=== PATIENT | male | born 1955 | race Caucasian/White ===

== ENCOUNTER 2019-10-01 08:46 | Emergency (ER) | payer BC ==
[2019-09-21 11:40] VITALS: BP 134/75
[~2019-10-01] VITALS: Ht 180.3 cm; Wt 127.0 kg
[~2019-10-01 08:46] MED LIST: ATOR40TA59 PO; LISI1TAB19 PO
[2019-10-01] MEDS ORDERED: IV NORMAL SALINE 1000ML BAG 1,000 ML IV SCH (09:01)
[2019-10-01 09:21] LABS: BASO # 0.1 x10^3/uL (0.0-0.2); BASO % 1 % (0-3); EOS % 0 % (0-3); HEMATOCRIT 42.5 % (39.0-53.0); HEMOGLOBIN 12.9 g/dL (13.0-17.5); LYMPH # 5.4 x10^3/uL (1.0-4.8); LYMPH % 49 % (24-48); MEAN CORPUSCULAR HEMOGLOBIN 29 pg (25-35); MEAN CORPUSCULAR HGB CONC 30 g/dL (31-37); MEAN CORPUSCULAR VOLUME 94 fL (79-100); MONO # 0.9 x10^3/uL (0.0-1.1); MONO % 8 % (0-9); NEUT # 4.6 x10^3/uL (1.8-7.7); NEUT % 42 % (31-73); PLATELET COUNT 168 x10^3/uL (140-400); RED BLOOD COUNT 4.52 x10^6/uL (4.30-5.70); RED CELL DISTRIBUTION WIDTH 16.2 % (11.5-14.5); WHITE BLOOD COUNT 11.1 x10^3/uL (4.0-11.0)
[2019-10-01 09:22] LABS: CALCIUM 9.6 mg/dL (8.5-10.1); GFR 33.8; POTASSIUM 4.6 mmol/L (3.5-5.1)
[2019-10-01 09:23] LABS: PROTHROMBIN TIME PATIENT 15.9 SEC (11.7-14.0)
[2019-10-01 09:25] LABS: ALBUMIN 2.3 g/dL (3.4-5.0); ALBUMIN/GLOBULIN RATIO 0.6 (1.0-1.7); MAGNESIUM 2.9 mg/dL (1.8-2.4); TOTAL BILIRUBIN 0.4 mg/dL (0.2-1.0)
[2019-10-01] MEDS ORDERED: EPINEPHrine VIAL 5 MG in IV NORMAL SALINE 250ML 250 ML IV ONE (09:30)
[2019-10-01 09:34] LABS: HCO3 ABG 9 mmol/L (21-28); PCO2 ABG 73 mmHg (35-46); PO2 ABG 79 mmHg (65-108)
[2019-10-01 09:35] LABS: BASE EXCESS ABG -29 mmol/L (-3-3); SAT O2 ABG 77 % (92-99)
--- NOTE | 2019-10-01 09:37 | PHYS DOC ---
Adult General Chief Complaint Chief Complaint: CPR/FULL ARREST HPI HPI Patient is a 64-year-old male who presented to the emergency department in full cardiac arrest. About 8:15, the patient's reports that she was in the shower, and her to fall, and went out and found the patient, who had been awake, had collapsed. EMS was called. EMS arrived and began resuscitative efforts. The patient was reportedly in asystole, received numerous rounds of epinephrine, and half an amp of bicarbonate, via an IO in the left humeral head. The patient was intubated upon arrival to the emergency department with 7.5 orotracheal tube, while CPR and ACLS continued. The patient was given numerous rounds of epinephrine, and several ampules of sodium bicarbonate, and would occasionally have some idioventricular complexes, some more, or some less organized, but never did regain a pulse or organized rhythm. After resuscitative efforts continued, but the patient did not show any improvement, and he has no signs of life at 9:24, the patient was declared . The patient's , who is in the emergency department, was informed. The patient was reportedly recently in this hospital for respiratory difficulties related to influenza and pneumonia, per limited reviewed notes. Review of Systems Review of Systems Unable to obtain review of systems, patient is unable to speak. Current Medications Current Medications Current Medications Medications (Trade) Dose Ordered Sig/Jorge Luis Start Time Stop Time Status Last Admin Dose Admin Epinephrine HCl 5 mg/Sodium Chloride 255 ml @ 0 mls/hr 1X ONCE 10/01/19 09:30 10/01/19 09:31 DC Sodium Chloride 1,000 ml @ 1,000 mls/hr Q1H 10/01/19 09:01 10/01/19 10:00 Allergies Allergies Allergies Coded Allergies Type Severity Reaction Last Updated Verified No Known Drug Allergies 09/17/19 No Physical Exam Physical Exam PHYSICAL EXAM: CONSTITUTIONAL: Well developed, well nourished HEAD: normocephalic, atraumatic EENT: Pupils are midpoint and dilated. Conjunctivae normal color, sclerae non- icteric; moist mucous membranes. There is mottling to the skin of the face upon arrival. NECK: Supple, non-tender; no meningismus. LUNGS: There are no spontaneous breath sounds. There are good breath sounds bilaterally with assisted ventilation. HEART: There is a pulse with CPR but no spontaneous pulse. CHEST: No deformity; non-tender ABDOMEN: The abdomen is soft, mildly distended, EXTREM: No Gross deformity. SKIN: No rash; no diaphoresis. There is mottling of the skin. NEURO: Patient is unresponsive. Current Patient Data Lab Values Laboratory Tests Test 10/01/19 08:57 White Blood Count 11.1 x10^3/uL (4.0-11.0) H Red Blood Count 4.52 x10^6/uL (4.30-5.70) Hemoglobin 12.9 g/dL (13.0-17.5) L Hematocrit 42.5 % (39.0-53.0) Mean Corpuscular Volume 94 fL (79-100) Mean Corpuscular Hemoglobin 29 pg (25-35) Mean Corpuscular Hemoglobin Concent 30 g/dL (31-37) L Red Cell Distribution Width 16.2 % (11.5-14.5) H Platelet Count 168 x10^3/uL (140-400) Neutrophils (%) (Auto) 42 % (31-73) Lymphocytes (%) (Auto) 49 % (24-48) H Monocytes (%) (Auto) 8 % (0-9) Eosinophils (%) (Auto) 0 % (0-3) Basophils (%) (Auto) 1 % (0-3) Neutrophils # (Auto) 4.6 x10^3/uL (1.8-7.7) Lymphocytes # (Auto) 5.4 x10^3/uL (1.0-4.8) H Monocytes # (Auto) 0.9 x10^3/uL (0.0-1.1) Eosinophils # (Auto) 0.0 x10^3/uL (0.0-0.7) Basophils # (Auto) 0.1 x10^3/uL (0.0-0.2) Platelet Estimate Pending Prothrombin Time 15.9 SEC (11.7-14.0) H Prothrombin Time INR 1.3 (0.8-1.1) H Sodium Level 143 mmol/L (136-145) Potassium Level 4.6 mmol/L (3.5-5.1) Chloride Level 99 mmol/L (98-107) Carbon Dioxide Level 17 mmol/L (21-32) L Anion Gap 27 (6-14) H Blood Urea Nitrogen 25 mg/dL (8-26) Creatinine 2.0 mg/dL (0.7-1.3) H Estimated GFR (Cockcroft-Gault) 33.8 BUN/Creatinine Ratio 13 (6-20) Glucose Level 291 mg/dL (70-99) H Calcium Level 9.6 mg/dL (8.5-10.1) Magnesium Level 2.9 mg/dL (1.8-2.4) H Total Bilirubin 0.4 mg/dL (0.2-1.0) Aspartate Amino Transferase (AST) 79 U/L (15-37) H Alanine Aminotransferase (ALT) 104 U/L (16-63) H Alkaline Phosphatase 101 U/L (46-116) Troponin I Quantitative 0.020 ng/mL (0.000-0.055) Total Protein 6.0 g/dL (6.4-8.2) L Albumin 2.3 g/dL (3.4-5.0) L Albumin/Globulin Ratio 0.6 (1.0-1.7) L Laboratory Tests 10/01/19 08:57 Laboratory Tests 10/01/19 08:57 EKG EKG [] Radiology/Procedures Radiology/Procedures [] Course & Med Decision Making Course & Med Decision Making Pertinent Lab studies reviewed. (See chart for details) []9:35 AM: I have paged the patient's PCP, Dr. Kohli, to inform them of the patient's . Dragon Disclaimer Dragon Disclaimer This electronic medical record was generated, in whole or in part, using a voice recognition dictation system. Departure Departure Impression: Primary Impression: Cardiac arrest Disposition: 20 Referrals: TARUN KOHLI MD (PCP) MIAN GOODWIN MD Oct 01, 2019 09:37
[2019-10-01 09:52] LABS: % BANDS 1 % (0-9); % EOS 1 % (0-5); % LYMPHS 59 % (24-48); % MONOS 5 % (0-10); % SEGS 34 % (35-66); PLT ESTIMATE ADEQUATE (ADEQUATE)
== END 2019-10-01 13:05 | disposition expired ==
LOC: ER 08:46
DX: I46.9 Cardiac arrest, cause unspecified (principal)
CPT/HCPCS: 31500; 36415; 80053; 82805; 83735; 83880; 84484; 85007; 85025; 85610; 92950; 99285